=== PATIENT | female | born 1985 | race Caucasian/White ===

== ENCOUNTER 2020-07-30 10:39 | Inpatient (IN) | payer MEDICAID, OTHER ==
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
[2020-07-30 14:15] LABS: Amphetamine Screen,Urine Not Detected (NotDetected); Barbiturate Screen,Urine Not Detected (NotDetected); Benzodiazepines Screen,Urine Not Detected (NotDetected); Cocaine Screen,Urine Not Detected (NotDetected); Methadone Screen, Urine Not Detected (NotDetected); Opiate Screen,Urine Not Detected (NotDetected); Oxycodone Screen, Urine Not Detected (NotDetected); Phencyclidine Screen,Urine Not Detected (NotDetected); Tricyclic Antidepressant,Urine Detected (NotDetected); Urn Cannabinoid Scrn Not Detected (NotDetected)
[2020-07-30] MEDS ORDERED: MAGNESIUM HYDROXIDE 2,400 MG/10 ML CUP PO PRN (16:26)
[2020-07-30] MEDS ORDERED: HALOPERIDOL LACTATE 5 MG/ML 1 ML VIAL IM PRN (16:28)
[2020-07-30] MEDS ORDERED: LORazepam 2 MG/ML INJ IM PRN (16:28)
[2020-07-30] MEDS: LORazepam 1 MG TAB PO PRN (17:21)
[2020-07-30] MEDS: MIRTAZAPINE 15 MG TAB PO SCH (22:59)
[2020-07-30] MEDS: QUEtiapine 50 MG TAB PO SCH (23:00)
[2020-07-30] MEDS: busPIRone HCl 5 MG TAB PO SCH (23:00)
--- NOTE | 2020-07-31 01:04 | P.PN ---
Progress Note - Text Progress Note Date: 07/31/20 patient was not appropriate for evaluation tonight , will re attempt tomorrow
[2020-07-31] MEDS: LORazepam 1 MG TAB PO PRN (03:50)
[2020-07-31] MEDS: busPIRone HCl 5 MG TAB PO SCH (08:17)
[2020-07-31 08:51] LABS: Basophils # (A) 0.1 k/uL (0-0.2); Basophils % (A) 1 %; Eosinophils # (A) 0.2 k/uL (0-0.7); Eosinophils % (A) 2 %; HGB 14.2 gm/dL (11.4-16.0); Lymphocytes # (A) 2.5 k/uL (1.0-4.8); Lymphocytes % (A) 30 %; MCH 29.9 pg (25.0-35.0); MCHC 32.3 g/dL (31.0-37.0); MCV 92.3 fL (80.0-100.0); Monocytes # (A) 0.5 k/uL (0-1.0); Monocytes % (A) 6 %; Neutrophils # (A) 4.9 k/uL (1.3-7.7); Neutrophils % (A) 59 %; Platelet Count 281 k/uL (150-450); RBC 4.76 m/uL (3.80-5.40); RDW 13.5 % (11.5-15.5); WBC 8.2 k/uL (3.8-10.6)
[2020-07-31] MEDS ORDERED: FLUoxetine HCL 10 MG CAP PO SCH (09:00)
[2020-07-31 09:09] LABS: ALT 11 U/L (4-34); AST 21 U/L (14-36); African American GFR (CKD) >90 (>60 ml/min/1.73 sqM); Albumin 3.7 g/dL (3.5-5.0); Alkaline Phosphatase 61 U/L (38-126); Anion Gap 4 mmol/L; Blood Urea Nitrogen 16 mg/dL (7-17); Calcium 9.1 mg/dL (8.4-10.2); Carbon Dioxide 31 mmol/L (22-30); Chloride 107 mmol/L (98-107); Glucose 81 mg/dL (74-99); Non-African American GFR(CKD) 78 (>60 ml/min/1.73 sqM); Potassium 4.3 mmol/L (3.5-5.1); Sodium 142 mmol/L (137-145); Total Bilirubin 0.3 mg/dL (0.2-1.3); Total Protein 6.2 g/dL (6.3-8.2)
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
--- NOTE | 2020-07-31 20:58 | P.PN ---
Progress Note - Text Progress Note Date: 07/31/20 again , patient could not participate in the interview she is staring into hallway mirrors. does not make eye contact, does not talk or acknowledge my existence. please notify sound physicians for any medical concerns
[2020-07-31] MEDS: MIRTAZAPINE 15 MG TAB PO SCH (21:06)
[2020-07-31] MEDS: QUEtiapine 50 MG TAB PO SCH (21:06)
[2020-08-01] MEDS: FLUoxetine HCL 10 MG CAP PO SCH (08:07)
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
[2020-08-01] MEDS: LORazepam 1 MG TAB PO PRN (11:31)
[2020-08-01] MEDS: MIRTAZAPINE 15 MG TAB PO SCH (20:59)
[2020-08-01] MEDS: QUEtiapine 50 MG TAB PO SCH (20:59)
[2020-08-02] MEDS: LORazepam 1 MG TAB PO PRN ×2 (06:37→15:32)
[2020-08-02] MEDS: FLUoxetine HCL 10 MG CAP PO SCH (08:48)
--- NOTE | 2020-08-02 10:25 | P.PN ---
Progress Note - Text Progress Note Date: 08/02/20 Interval History: Patient was seen wandering the hallways and was directable and agreeable to speak with policy writer in the office. Patient reports that she is feeling "good." Patient reports that she is feeling significantly better. She states that she wants to go home because she wants to move forward with her life. When asked about why she was unable to display an ability to take care of herself while in the [facility], the patient reports that it was a very depressing and difficult situation. She reports that she has no issues attending to her ADLs today. She does express concern about showering at this hospital but states that she will do so if it will further her case for discharge. The patient is currently denying any suicidal or homicidal ideation, intention, and/or plan. She is not reporting any auditory or visual hallucinations. She is denying any paranoia or other delusions. She has been adherent with her medications and is not reporting any significant side effects at this time. The patient reports that she is eating and sleeping well. Mental Status Exam: General Appearance: Patient appears to be stated age is alert, directable, and cooperative. Dressed in a hospital gown. Behavior: Patient is calmly seated without any agitated behavior. Psychomotor activity appears normal today. Eye contact is appropriate. Speech: Patient's speech is spontaneous with normal rate, and volume. Mildly dysarthric and monotone. Mood/Affect: Mood is "I need to go home." Affect is constricted but otherwise euthymic. Suicidality/Homicidality: Patient denies having any suicidal or homicidal ideation intent or plan. Perceptions: Patient denies any visual hallucinations and denies any auditory hallucinations Though content/process: No delusional thought content is endorsed. Thought process is linear, logical, and future-oriented. Memory and concentration: AOX3, grossly intact for the purposes of this session Judgment and insight: improving Vital Signs Temp 98.3 F 08/01/20 15:31 Pulse 115 H 08/02/20 06:38 Resp 18 08/02/20 06:38 BP 120/69 08/02/20 06:38 Pulse Ox 99 07/30/20 16:26 Assessment Depressive Disorder, unspecified Rule out Psychosis, unspecified vs Schizophreniform disorder Patient initially presented as bizarre, guarded, and superficial in her responses. She is currently much more spontaneous and displays more future- orientation. She is alert and oriented in all spheres. Plan: -Patient continues to meet criteria for inpatient psychiatric admission for symptom stabilization and safety. Patient is petitioned and certified. Patient reports she is likely to defer mental health court. -Medications: Continue Prozac 30 mg daily for depression/anxiety Continue Remeron 15 mg at bedtime for depression/appetite stimulation Continue Seroquel 75 mg at bedtime for mood augmentation. -When necessary Ativan and Haldol for agitation/aggression. -NRT - nicotine patch -SW on board for discharge planning. Encouraged the patient to participate in milieu.
[2020-08-02] MEDS: QUEtiapine 50 MG TAB PO SCH (21:07)
[2020-08-02] MEDS: MIRTAZAPINE 15 MG TAB PO SCH (21:08)
[2020-08-03] MEDS: FLUoxetine HCL 10 MG CAP PO SCH (08:32)
[2020-08-03] MEDS: LORazepam 1 MG TAB PO PRN (09:42)
--- NOTE | 2020-08-03 13:00 | P.PN ---
Progress Note - Text Progress Note Date: 08/03/20 Interval History: Patient was seen in her room and was directable and agreeable to speak with documentation writer . This 35-year-old female patient was admitted because of psychosis. She is still hallucinating and hears voices telling her different stuff. She speaks in a low monotonous voice which is a hardly audible and barely productive. She is quiet and withdrawn and preoccupied.. At this time patient denies any suicidal or homical ideations, intent or plan. Patient denies any side effects from the medications and has been compliant with meds. Mental Status Exam: General Appearance: Patient appears to be stated age is alert, directable, and cooperative. Behavior: Patient is calmly seated without any agitated behavior. Speech: Patient's speech is non-fluent and nonpressured. Mood/Affect: Mood is improving mildly, affect is constricted. Suicidality/Homicidality: Patient denies having any suicidal or homicidal ideation intent or plan. Perceptions: Patient has auditory hallucinations. Though content/process: She has a posterior ideas and extreme poverty of thought content. Memory and concentration: Her memory is poor and she is unable to concentrate on task. Judgment and insight: She has a poor insight and her judgment is impaired. Assessment This patient came because a diagnosis of psychosis and continues to have auditory hallucinations and shows other symptoms of psychosis. Plan: -Patient continues to meet criteria for inpatient psychiatric admission for symptom stabilization and safety. -Medications: Continue medications as before -When necessary Ativan and Haldol for agitation/aggression. -SW on board for discharge planning. Encouraged the patient to participate in milieu.
[2020-08-03] MEDS: MIRTAZAPINE 15 MG TAB PO SCH (21:03)
[2020-08-03] MEDS: QUEtiapine 50 MG TAB PO SCH (21:03)
[2020-08-04] MEDS: LORazepam 1 MG TAB PO PRN (05:12)
[2020-08-04] MEDS: FLUoxetine HCL 10 MG CAP PO SCH (09:06)
--- NOTE | 2020-08-04 13:18 | P.PN ---
Progress Note - Text Progress Note Date: 08/04/20 Interval History: Patient was seen in her room and was directable and agreeable to speak with medical underwriter. This patient continues to maintain status quo. She continues to show symptoms of psychosis. She mostly stays in her room withdrawn and preoccupied and talking to herself. At this time patient denies any suicidal or homical ideations, intent or plan. Patient denies any side effects from the medications and has been compliant with meds. Mental Status Exam: General Appearance: Patient appears to be stated age . Behavior: Patient is calm without any agitated behavior. Speech: Patient's speech is non-fluent and nonpressured. Mood/Affect: Mood is blank and affect is flat Suicidality/Homicidality: Patient denies having any suicidal or homicidal ideation intent or plan. Perceptions: Patient has auditory hallucinations Though content/process: She has a paucity of ideas and poverty of thought content. Memory and concentration: Her concentration is a poor and her memory is not testable Judgment and insight: She has a poor insight and judgment is impaired Assessment This patient was admitted with this psychosis and continues to have ongoing symptoms of it. Plan: -Patient continues to meet criteria for inpatient psychiatric admission for symptom stabilization and safety. -Medications: Continue medication as before -When necessary Ativan and Haldol for agitation/aggression. -SW on board for discharge planning. Encouraged the patient to participate in milieu.
[2020-08-04] MEDS: QUEtiapine 50 MG TAB PO SCH (21:09)
[2020-08-04] MEDS: MIRTAZAPINE 15 MG TAB PO SCH (21:09)
[2020-08-05] MEDS: FLUoxetine HCL 10 MG CAP PO SCH (08:42)
--- NOTE | 2020-08-05 11:54 | P.PN ---
Progress Note - Text Progress Note Date: 08/05/20 Interval History: Patient was seen wandering the hallways and was directable and agreeable to speak with bond writer in the office. The patient is currently demanding discharge. Upon evaluation of the patient in the milieu, she has been noted to be responding to internal stimuli, often engaging in self speech and addressing people who are not present around her. When confronted with this information, the patient reported that she has been having "godly conversations and voices." She refuses to further elaborate on the content of what was spoken to her. The patient continues just to repeat constantly to this provider "I'm ready to go home and I need to go home." She is overtly denying any auditory or visual hallucinations otherwise. She is denying any paranoia. She reports no suicidal or homicidal ideation, intention, and/or plan. She has been adherent to medi cations is not reporting any significant side effects. She was informed that we will continue to address her psychotic symptoms and increased medications to target her psychotic symptoms. Patient appears to be upset and took some redirection in order for her to leave the office. Mental Status Exam: General Appearance: Patient appears to be stated age is alert, difficult to direct, and intermittently cooperative. Dressed in a hospital gown. Fair hygiene and grooming. Behavior: Patient is calmly seated without any agitated behavior. Psychomotor activity appears slow. Eye contact is appropriate. Appears to respond to internal stimuli. Speech: Patient's speech is spontaneous with normal rate, and volume. Mildly dysarthric and monotone. Mood/Affect: Mood is "I need to go home." Affect is blunted. Suicidality/Homicidality: Patient denies having any suicidal or homicidal ideation intent or plan. Perceptions: Patient endorses auditory hallucinations. Though content/process: Shinto delusions. Very religiously preoccupied. Responds to internal stimuli. Memory and concentration: AOX3, grossly intact for the purposes of this session Judgment and insight: Poor Vital Signs Temp 97.4 F L 08/05/20 06:47 Pulse 85 08/05/20 06:47 Resp 16 08/05/20 06:47 BP 100/51 08/05/20 06:47 Pulse Ox 99 07/30/20 16:26 Intake & Output 06/06/21 06/07/21 06/07/21 18:59 06:59 18:59 Weight 64.3 kg Assessment Psychosis, unspecified - suspect schizophreniform versus schizophrenia versus schizoaffective disorder, depressed type. Plan: -Patient continues to meet criteria for inpatient psychiatric admission for symptom stabilization and safety. Patient is petitioned and certified. -Medications: Continue Prozac 30 mg daily for depression/anxiety Continue Remeron 15 mg at bedtime for depression/appetite stimulation Increase Seroquel to 150 mg at bedtime for mood augmentation. We will titrate this medication in response to the patient's target symptoms. -When necessary Ativan and Haldol for agitation/aggression. -NRT - nicotine patch -SW on board for discharge planning. Encouraged the patient to participate in milieu.
[2020-08-05] MEDS: LORazepam 1 MG TAB PO PRN (17:10)
[2020-08-05] MEDS ORDERED: QUEtiapine 50 MG TAB PO SCH (21:00)
[2020-08-05] MEDS: MIRTAZAPINE 15 MG TAB PO SCH (21:39)
[2020-08-06] MEDS: FLUoxetine HCL 10 MG CAP PO SCH (09:15)
--- NOTE | 2020-08-06 10:51 | P.PN ---
Progress Note - Text Progress Note Date: 08/06/20 Interval History: Patient was seen wandering the hallways and was directable and agreeable to speak with senior writer in the office. The patient continues to be quite guarded and a poor historian. The patient refuses to acknowledge that she has experienced a psychotic break despite being informed of the psychotic symptoms she was displaying including responding to internal stimuli, synagogue preoccupation, and decreased ability to function. The patient states that she is her own guardian and that she wants to be discharged. The patient states that she would like to go home. When asked if there is family the treatment team can speak to, the patient becomes agitated and states, "You don't need to speak to anyone. You're p*ssing me off." The patient is not reporting any suicidal or homicidal ideation, intention, and/or plan. She is denying any overt auditory or visual hallucinations. She does express some synagogue preoccupation,Including receiving godly messages, and when further explored, patient responds, "It's not a crime to be synagogue." She has been adherent with her medications and is not reporting any significant side effects at this time. The patient has not been able to address her hygiene during this hospital stay and refuses to shower last night. Mental Status Exam: General Appearance: Patient appears to be stated age is alert, difficult to direct, and intermittently cooperative. Dressed in a hospital gown with an oversized hooded sweatshirt. Poor hygiene and grooming. Behavior: Patient is calmly seated but later becomes agitated. Psychomotor activity appears slow. Speech: Patient's speech is spontaneous with normal rate, and volume. Mildly dysarthric and monotone. Mood/Affect: Mood is "I need to go home." Affect is blunted to angry. Suicidality/Homicidality: Patient denies having any suicidal or homicidal ideation intent or plan. Perceptions: Patient endorses auditory hallucinations. Though content/process: Protestant delusions. Very religiously preoccupied. Responds to internal stimuli. Memory and concentration: AOX3, grossly intact for the purposes of this session Judgment and insight: Poor Vital Signs Temp 97.4 F L 08/05/20 06:47 Pulse 85 08/05/20 06:47 Resp 16 08/05/20 06:47 BP 100/51 08/05/20 06:47 Pulse Ox 99 07/30/20 16:26 Assessment Psychosis, unspecified - suspect schizophreniform versus schizophrenia versus schizoaffective disorder, depressed type. Plan: -Patient continues to meet criteria for inpatient psychiatric admission for symptom stabilization and safety. Patient deferred mental health court. -As the patient is her own guardian, discharge disposition has changed from an [facility] home likely to her own home. We will change our medication to an antipsychotic with a SARGENT to ensure medication adherence. -Medications: Continue Prozac 30 mg daily for depression/anxiety Continue Remeron 15 mg at bedtime for depression/appetite stimulation Discontinue Seroquel. Start Invega 6 mg at bedtime for psychosis. Plan is to transition the patient to SARGENT invega sustenna 234 mg IM to ensure medication adherence. -When necessary Ativan and Haldol for agitation/aggression. -NRT - nicotine patch -SW on board for discharge planning. Encouraged the patient to participate in milieu.
[2020-08-06] MEDS: PALIPERIDONE 6 MG TAB.ER.24 PO SCH (20:54)
[2020-08-06] MEDS: MIRTAZAPINE 15 MG TAB PO SCH (20:54)
[2020-08-06] MEDS ORDERED: QUEtiapine 100 MG TAB PO SCH (21:00)
[2020-08-06] MEDS: LORazepam 1 MG TAB PO PRN (22:46)
[2020-08-07] MEDS: FLUoxetine HCL 10 MG CAP PO SCH (08:30)
--- NOTE | 2020-08-07 11:14 | P.PN ---
Progress Note - Text Progress Note Date: 08/07/20 Interval History: Patient was seen wandering the hallways and was directable and agreeable to speak with jingle writer in the office. The patient appears disorganized today and requires much redirection. She does not respond appropriately to questioning and often speaks in short nonsensical responses. She does report she is feeling very tired today. She continues to be focused on discharge. She continues to report, "I just need to go home to get my life together." Mental Status Exam: General Appearance: Patient appears to be stated age is alert, difficult to direct, and intermittently cooperative. Dressed in a hospital gown with an oversized hooded sweatshirt. Poor hygiene and grooming. Behavior: Patient appears somnolent. Psychomotor activity appears slow. Speech: Patient's speech is spontaneous, low in volume, monotone, dysarthric. Mood/Affect: Mood is "I just need to go home." Affect is somnolent and blunted. Suicidality/Homicidality: Unable to assess Perceptions: Unable to assess Though content/process: Unable to assess Memory and concentration: Unable to assess Judgment and insight: Poor Vital Signs Temp 97.7 F 08/07/20 06:40 Pulse 69 08/07/20 06:40 Resp 14 08/07/20 06:40 BP 94/54 08/07/20 06:40 Pulse Ox 99 07/30/20 16:26 Assessment Psychosis, unspecified - suspect schizophreniform versus schizophrenia versus schizoaffective disorder, depressed type. Plan: -Patient continues to meet criteria for inpatient psychiatric admission for symptom stabilization and safety. Patient deferred mental health court. -As per discussion with the patient's therapist, [facility] dispo is [facility] or a forensic center. [facility]. -Medications: Continue Prozac 30 mg daily for depression/anxiety Continue Remeron 15 mg at bedtime for depression/appetite stimulation Continue Invega 6 mg at bedtime for psychosis. Plan is to transition the patient to SARGENT invega sustenna 234 mg IM to ensure medication adherence. -When necessary Ativan and Haldol for agitation/aggression. -NRT - nicotine patch -SW on board for discharge planning. Encouraged the patient to participate in milieu.
[2020-08-07] MEDS: MAG HYDROX/AL HYDROX/SIMETH 30 ML CUP PO PRN (11:45)
[2020-08-07] MEDS: LORazepam 1 MG TAB PO PRN (14:38)
[2020-08-07] MEDS: PALIPERIDONE 6 MG TAB.ER.24 PO SCH (21:42)
[2020-08-07] MEDS: MIRTAZAPINE 15 MG TAB PO SCH (21:42)
[2020-08-08] MEDS: FLUoxetine HCL 10 MG CAP PO SCH (09:35)
[2020-08-08] MEDS ORDERED: HALOPERIDOL LACTATE 5 MG/ML 1 ML VIAL IM PRN (11:25)
--- NOTE | 2020-08-08 11:29 | P.PN ---
Progress Note - Text Progress Note Date: 08/08/20 Interval History: Patient was seen wandering the hallways and was agreeable to speak with lyric writer in the office. The patient reports that she feels "very tired today." The patient reports that she does not have any issues with sleep last night. She reports that she feels oversedated with the medications. She did receive Ativan this morning. The patient is not reporting any suicidal or homicidal ideation, intention, and/or plan. She does endorse auditory hallucinations but refuses to elaborate. She is not reporting any visual hallucinations. She is denying any overt symptoms of paranoia or other delusions. The patient does report that she met with an tax associate attorney yesterday but is uncertain about what paperwork was presented before her. She continues to request for discharge. Mental Status Exam: General Appearance: Patient appears to be stated age is alert, difficult to direct, and intermittently cooperative. Dressed in jeans with an oversized hooded sweatshirt. Poor hygiene and grooming. Behavior: Patient appears somnolent. Psychomotor activity appears slow. Speech: Patient's speech is nonspontaneous, low in volume, monotone, dysarthric. Mood/Affect: Mood is "very tired." Affect is somnolent and drowsy. Suicidality/Homicidality: Patient denies any suicidal or homicidal ideation, intention, and/or plan. Perceptions: Patient does endorse auditory hallucinations. She denies any visual hallucinations. Though content/process: No delusional thought content is endorsed. Thought process with thought blocking. Memory and concentration: Grossly intact for purposes of this session. Judgment and insight: Poor Vital Signs Temp 97.9 F 08/08/20 07:17 Pulse 101 H 08/08/20 07:17 Resp 18 08/08/20 07:17 BP 99/55 08/08/20 07:17 Pulse Ox 99 07/30/20 16:26 Assessment Psychosis, unspecified - suspect schizophreniform versus schizophrenia versus schizoaffective disorder, depressed type. Plan: -Patient continues to meet criteria for inpatient psychiatric admission for symptom stabilization and safety. Patient deferred mental health court. -As per discussion with the patient's therapist, patient dispo is senior living or a forensic center. Possible [facility]. -Medications: Continue Prozac 30 mg daily for depression/anxiety Discontinue remeron due to oversedation. Increase Invega to 9 mg at bedtime for psychosis. Plan is to transition the patient to SARGENT invega sustenna 234 mg IM to ensure medication adherence. -We will decrease the dose of Haldol to 3 mg as needed and we will discontinue Ativan due to oversedation. We will start Vistaril 25 mg every 8 hours when necessary for anxiety. -NRT - nicotine patch -SW on board for discharge planning. Encouraged the patient to participate in milieu.
[2020-08-08] MEDS: hydrOXYzine pamoate 25 MG CAP PO PRN ×2 (11:49→19:40)
[2020-08-08] MEDS: PALIPERIDONE 3 MG TAB.ER.24 PO SCH (19:40)
[2020-08-09] MEDS: FLUoxetine HCL 10 MG CAP PO SCH (09:01)
[2020-08-09] MEDS: hydrOXYzine pamoate 25 MG CAP PO PRN (09:48)
[2020-08-09 14:34] LABS: Appearance,Urine Clear (Clear); Bilirubin,Urine Negative (Negative); Blood,Urine Negative (Negative); Color,Urine Colorless; Glucose,Urine (UA) Negative (Negative); Ketones,Urine Negative (Negative); Leukocyte Esterase,Urine Negative (Negative); Nitrite,Urine Negative (Negative); PH, Urine 6.5 (5.0-8.0); Protein,Urine Negative (Negative); Specific Gravity,Urine 1.003 (1.001-1.035); Urobilinogen,Urine <2.0 mg/dL (<2.0)
--- NOTE | 2020-08-09 19:07 | PN ---
PROGRESS NOTE DATE OF SERVICE: 08/09/2020 CHIEF COMPLAINT: The patient had significant decrease in her ability to function and showed poor ability to perform ADLs. This occurred while she was incarcerated. INTERVAL HISTORY: The patient has been doing fair. She had a quiet day yesterday. She comes out on the unit. She will wander about where she walks in a very slow measured gait. She has some difficulties with coordination and balance. At times she can be seen talking to herself. Whether or not she is responding to internal stimuli is not fully clear. She did not attend groups yesterday. She said she slept fairly well. Today she has been up. Overall, she has been doing about the same. She continues to wander. She did attend one group today. When I talked to her she seemed to indicate that overall things were going better for her. She seemed to have a better outlook and mood. She made various random comments though it was difficult to follow her train of thought. She did present in a friendly manner. She made some comment to the negative about her Prozac, though when I tried to get details she did not really elaborate. For the most part she appears to tolerate her psychotropic medications. MENTAL STATUS: Patient walked very slowly. She gave fair eye contact at best. She was a little restless. She answered questions with brief responses. Some of the time she had garbled speech and it was difficult to hear what she was saying. Her affect was somewhat constricted. She had a somewhat fixed smile on her face and presented with a calm manner. She did not appear to be significantly depressed or distressed. The patient denied having auditory hallucinations. She does have some self talk. She has not made any indication of self-harm. She was oriented to her circumstances and was able to talk about some of discharge planning issues. ASSESSMENT: I will continue the current diagnosis and treatment plan. We will continue psychotropic medications the same including Prozac 30 mg a day and Invega 9 mg a day. I have briefly reviewed medication issues with the patient. I discussed side effects that she may experience. The patient indicated to the negative to all of those. I reviewed her home circumstances. We will focus on stabilization and discharge planning. MMODL / IJN: [id number] /
[2020-08-09] MEDS: PALIPERIDONE 3 MG TAB.ER.24 PO SCH (20:26)
[2020-08-10] MEDS: FLUoxetine HCL 10 MG CAP PO SCH ×2 (09:11→09:13)
[2020-08-10] MEDS: PALIPERIDONE 3 MG TAB.ER.24 PO SCH (20:08)
--- NOTE | 2020-08-10 21:53 | P.PN ---
Progress Note - Text Progress Note Date: 08/10/20 Subjective: Patient was seen today as a cross coverage for Dr. Mckeon. The patient was evaluated, chart reviewed, case discussed with the treatment team. Patient reports fair sleep last night, and appetite was reported as "better". Patient has been going to groups and other unit activities. The patient is not compliant with her medications and denies any adverse reactions. Pt was slow in her thinking with delayed response. She reports that will not take Prozac as she doesn't feel any depression and never was "severely depressed". She was educated about taking her psych medications as prescribed and to discuss them with Dr. Mckeon. She will continue take Invegas as per her report. Denies any manic or psychotic symptoms. Denies A/V H and denies any S/H ideation. Reports shakiness but attributed that to baseline shaking and refused to discuss any recommended treatment for EPS. Objective: Vitals has been reviewed. Mental status examination; Appearance: The patient appears stated age, adequately groomed and dressed, no specific features. Gait/posture: Normal gait, Normal arm swinging: No abnormal movements. Attitude and behavior: engaged, cooperative, eye contact. Motor activity: Normal psychomotor activity Speech: slow rate, low tone, and volume. Mood: Anxious Affect: Constricted Thought form: slow thinking, poverty of thoughts. Thought content: Non-delusional, denies suicidal thoughts, denies homicidal thoughts, denies intentions or plans. Perception: Denies any auditory or visual hallucinations Attention: No impairment. Orientation: Patient patient was fully oriented to time place person and situation. Insight: Patient has limited insight about her psychiatric disorder. Judgment: Patient has limited judgment about her psychiatric treatment. Assessment: Psychosis, unspecified - schizophreniform versus schizophrenia versus schizoaffective disorder, depressed type. Plan: Continue inpatient level of care due to need for further stabilization. Precautions: Continue 15 minutes check for safety. Consider medical consultation if any acute medical issues arise. Provide the patient individual, group therapy, substance use disorder counseling to give better insight and learn coping skills. Medications: Prozac for depression and anxiety symptoms. Invega for mood stabilization and psychotic symptoms. Continue as needed medications for psychiatric emergencies including psychosis, agitation and anxiety. Continue non-psychiatric medications for medical conditions as recommended by the medical team. Discharge patient to OUTPATIENT services upon a stabilization
[2020-08-11] MEDS: BENZTROPINE MESYLATE 1 MG TAB PO PRN (00:44)
[2020-08-11] MEDS: FLUoxetine HCL 10 MG CAP PO SCH (09:03)
[2020-08-11] MEDS: PALIPERIDONE 3 MG TAB.ER.24 PO SCH ×2 (21:33→21:34)
--- NOTE | 2020-08-12 00:41 | P.PN ---
Progress Note - Text Progress Note Date: 08/11/20 Subjective: Patient was seen today as a cross coverage for Dr. Mckeon. The patient was evaluated, chart reviewed, case discussed with the treatment team. Patient is still refusing to take Prozac and reports she doesn't feel depressed. She reports her hand tremors are better today, and she received when necessary Cogentin yesterday. Denies depression, feeling hopeless, or suicidal ideation. Denies any hallucinations, paranoid ideation, or delusions. Denies any mood swings or manic symptoms. Continued to report fair sleep and appetite, and attends selected groups. She continues to take Invega but refused to take Prozac. Cogentin was added as when necessary for EPS yesterday. Patient refused to discuss any scheduled medication for EPS symptoms. Objective: Vitals has been reviewed. Mental status examination; Appearance: The patient appears stated age, adequately groomed and dressed, no specific features. Gait/posture: Normal gait, Normal arm swinging, hand tremors. Attitude and behavior: engaged, cooperative, eye contact. Motor activity: Normal psychomotor activity Speech: slow rate, low tone, and volume. Mood: Anxious Affect: Constricted Thought form: slow thinking, poverty of thoughts. Thought content: Non-delusional, denies suicidal thoughts, denies homicidal thoughts, denies intentions or plans. Perception: Denies any auditory or visual hallucinations Attention: No impairment. Orientation: Patient patient was fully oriented to time place person and situation. Insight: Patient has limited insight about her psychiatric disorder. Judgment: Patient has limited judgment about her psychiatric treatment. Assessment: Psychosis, unspecified - schizophreniform versus schizophrenia versus schizoaffective disorder, depressed type. Plan: Continue inpatient level of care due to need for further stabilization. Precautions: Continue 15 minutes check for safety. Consider medical consultation if any acute medical issues arise. Provide the patient individual, group therapy, substance use disorder counseling to give better insight and learn coping skills. Medications: Prozac for depression and anxiety symptoms. Invega for mood stabilization and psychotic symptoms. Continue as needed medications for psychiatric emergencies including psychosis, agitation and anxiety. Continue when necessary Cogentin for EPS Continue non-psychiatric medications for medical conditions as recommended by the medical team. Discharge patient to OUTPATIENT services upon a stabilization
[2020-08-12] MEDS: hydrOXYzine pamoate 25 MG CAP PO PRN (01:27)
[2020-08-12] MEDS: BENZTROPINE MESYLATE 1 MG TAB PO PRN (01:39)
[2020-08-12] MEDS: PALIPERIDONE 3 MG TAB.ER.24 PO SCH ×2 (01:52→21:26)
[2020-08-12] MEDS: FLUoxetine HCL 10 MG CAP PO SCH (09:16)
[2020-08-12] MEDS: MAG HYDROX/AL HYDROX/SIMETH 30 ML CUP PO PRN (09:19)
--- NOTE | 2020-08-12 11:10 | P.HPMEDMHU ---
History of Present Illness H&P Date: 08/12/20 Chief Complaint: brought in from the [facility] due to poor functioning Patient is a 35-year-old female with past medical history of marijuana abuse who was brought in to the ED on 07/31/2020 from [facility] due to declining in her functional status. In her chart it is reported that patient had poor ability to perform her ADLs. Multiple attempts were made by our service to obtain history from the patient however patient was not answering any questions so she could not be evaluated medically. I saw the patient this morning she is responding to questions appropriately. She states that her stay in the psych facility has been beneficial. She is very appreciative of the care that she has received. Patient states that she is for marijuana and so she will continue to smoke it. She states that it has helped her in the past. She states she'll need to take 4 puffs which gives her significant relief. Patient denies any chest pain, nausea, vomiting, fever or chills. Review of Systems 10 ROS reviewed and are negative except as noted in HPI Past Medical History Past Medical History: Seizure Disorder Additional Past Medical History / Comment(s): Seizure DO as a child. last seizure 2004 History of Any Multi-Drug Resistant Organisms: None Reported Past Surgical History: No Surgical Hx Reported Past Anesthesia/Blood Transfusion Reactions: No Reported Reaction Past Psychological History: Depression Additional Psychological History / Comment(s): pt unsure of psych Hx. Smoking Status: Never smoker Past Alcohol Use History: Rare Past Drug Use History: Marijuana Medications and Allergies Home Medications Medication Instructions Recorded Confirmed Type FLUoxetine HCL [PROzac] 10 mg PO DAILY 07/30/20 07/30/20 History Mirtazapine [Remeron] 15 mg PO HS 07/30/20 07/30/20 History QUEtiapine [SEROquel] 50 mg PO HS 07/30/20 07/30/20 History busPIRone HCl [Buspar] 5 mg PO BID 07/30/20 07/30/20 History metroNIDAZOLE [Flagyl] 500 mg PO BID 07/30/20 07/30/20 History Allergies Allergy/AdvReac Type Severity Reaction Status Date / Time No Known Allergies Allergy Verified 07/30/20 18:27 Physical Exam Vitals: Vital Signs Temp Pulse Resp BP 08/12/20 02:00 97.6 F 75 18 118/58 General: [Alert and oriented, well nourished, no acute distress]. Eye: [PERRL, EOMI, normal conjunctiva]. HENT: [Normocephalic, clear tympanic membranes, normal hearing, moist oral mucosa, no scleral icterus, no sinus tenderness]. Neck: [Supple, non-tender, no carotid bruits, no JVD, no lymphadenopathy]. Lungs: [Clear to auscultation and percussion, non-labored respiration]. Heart: [Normal rate, regular rhythm, no murmur, gallop or edema]. Abdomen: [Soft, non-tender, non-distended, normal bowel sounds, no masses]. Musculoskeletal: [Normal range of motion and strength, no tenderness or swelling]. Skin: [Skin is warm, dry and pink, no rashes or lesions]. Neurologic: [Awake, alert, and oriented X3, CN II-XII intact]. Psychiatric: [Cooperative, appropriate mood and affect]. Cranial Nerve Examination - Cranial Nerves Cranial Nerve II- Optic: Intact Cranial Nerve III- Oculomotor: Intact Cranial Nerve IV- Trochlear: Intact Cranial Nerve V- Trigeminal: Intact Cranial Nerve - Abducens: Intact Cranial Nerve VII- Facial: Intact Cranial Nerve VIII- Auditory: Intact Cranial Nerve IX- Glossopharyngeal: Intact Cranial Nerve X- Vagus: Intact Cranial Nerve XI- Accessory: Intact Cranial Nerve XII- Hypoglossal: Intact Results CBC & Chem 7: 07/31/20 07:58 07/31/20 07:58 Thrombosis Risk Factor Assmnt - Choose All That Apply Any of the Below Risk Factors Present?: No Assessment and Plan Assessment: Marijuana abuse -Patient was counseled on marijuana abuse however she is not willing to quit Psychosis -Appears to be improving since admission -Yellow psychiatric management Thank you for allowing us to participate in the care of this patient. We will follow peripherally. Do not hesitate to contact us with questions. Someone can reach from [facility] hospitalist group at all hours of the day at [phone].
[2020-08-12] MEDS ORDERED: PALIPERIDONE IM 234 MG/1.5 ML SYG IM STA (11:14)
--- NOTE | 2020-08-12 12:25 | P.PN ---
Progress Note - Text Progress Note Date: 08/12/20 Interval History: Patient was seen wandering the hallways and was agreeable to speak with sql report writer in the office. Patient is presenting well today. She is currently not reporting any auditory or visualizations. Denying any paranoia or other delusions. She is much more spontaneous today and has had increased range of affect. She displays improved hygiene and grooming. The patient does express however that she wishes to be discharged and does not believe that she needs to go back to [facility]. She was informed that it is not her decision with this hospital's decision if she has to go back to [facility] or not. She was informed that she is likely a [facility]-hold. She seems to dismiss this when being informed of this. She does express a strong desire to stop Prozac stating that the Prozac has been causing him to feel nauseous and lightheaded. She is agreeable to taking the Invega. Patient is not reporting issues with sleep or appetite. She has been attending groups with high participation and has displayed future orientation. The patient is scheduled to go to court for competency today. Mental Status Exam: General Appearance: Patient appears to be stated age is alert, Directable and cooperative. Dressed In a hospital gown with an oversized [place] hooded sweatshirt. Improved hygiene and grooming. Behavior: Patient is seated in the office with no agitated behavior. Eye contact is appropriate. Psychomotor activity appears normal. Speech: Patient's speech is Spontaneous, with normal rate and volume. Monotone. Mood/Affect: Mood is "I'm feeling really good today." Affect is bright. Suicidality/Homicidality: Patient denies any suicidal or homicidal ideation, intention, and/or plan. Perceptions: Patient does endorse auditory hallucinations. She denies any visual hallucinations. Though content/process: No delusional thought content is endorsed. Thought process appears to be linear and logical although the patient does not seem to comprehend that she may be going back to [facility] after this admission. Possible denial. Memory and concentration: Grossly intact for purposes of this session. Judgment and insight: Improving but still poor. Vital Signs Temp 97.6 F 08/12/20 02:00 Pulse 75 08/12/20 02:00 Resp 18 08/12/20 02:00 BP 118/58 08/12/20 02:00 Pulse Ox 99 07/30/20 16:26 Intake & Output 08/11/20 08/12/20 08/12/20 18:59 06:59 18:59 Weight 65.5 kg Assessment Psychosis, unspecified - suspect schizophreniform versus schizophrenia versus schizoaffective disorder, depressed type. Plan: -Patient continues to meet criteria for inpatient psychiatric admission for symptom stabilization and safety. Patient deferred mental health court. -As per discussion with the patient's therapist, patient dispo is [facility] or a forensic center. [facility]. -Medications: Discontinue Prozac Decrease Invega to 6 g by mouth daily as we will administer Invega Sustenna 234 mg IM today. -Haldol and vistaril for agitation when necessary. -NRT - nicotine patch -SW on board for discharge planning. Encouraged the patient to participate in milieu.
--- NOTE | 2020-08-13 09:52 | P.PN ---
Progress Note - Text Progress Note Date: 08/13/20 nterval History: Patient was seen wandering the hallways and was agreeable to speak with telegraphic typewriter operator chief in the office. Patient is reporting she is feeling well today. She does acknowledge she attended trial yesterday to assess her competency. She is unable to provide any details of the event. She does report she has been able to shower last night and has no issues with appetite. She reports no issues with sleep. She denies any suicidal or homicidal ideation, intention, and/or plan. She reports no auditory or visual hallucinations. She denies any paranoia or other delusions. She continues to not seem to grasp the understanding of her legal problems and her possible prison hold. She maintains the thought that she will be discharged home despite multiple attempts by this provider to inform her of the different discharge scenarios. Mental Status Exam: General Appearance: Patient appears to be stated age is alert, Directable and cooperative. Dressed In a hospital gown with an oversized [place] hooded sweatshirt and red pajama pants. Good hygiene and grooming. Behavior: Patient is seated in the office with no agitated behavior. Eye contact is appropriate. Psychomotor activity appears normal. Speech: Patient's speech is Spontaneous, with normal rate and volume. Monotone. Mood/Affect: Mood is "I'm doing great." Affect is bright. Suicidality/Homicidality: Patient denies any suicidal or homicidal ideation, intention, and/or plan. Perceptions: No auditory or visual hallucinations are endorsed. Though content/process: No delusional thought content is endorsed. Thought process appears to be linear and logical although the patient does not seem to comprehend that she may be going back to prison after this admission. Possible denial. Memory and concentration: Grossly intact for purposes of this session. Judgment and insight: Improving but still poor. Vital Signs Temp 97.6 F 08/13/20 02:00 Pulse 67 08/13/20 02:00 Resp 18 08/13/20 02:00 BP 120/61 08/13/20 02:00 Pulse Ox 99 07/30/20 16:26 Assessment Psychosis, unspecified - suspect schizophreniform versus schizophrenia versus schizoaffective disorder, depressed type. Plan: -Patient continues to meet criteria for inpatient psychiatric admission for symptom stabilization and safety. Patient deferred mental health court. -Medications: Continue invega 6 mg daily. First loading dose of Invega sustenna 234 mg IM was administered on 08/12/2020. -Haldol and vistaril for agitation when necessary. -NRT - nicotine patch -SW on board for discharge planning. Encouraged the patient to participate in milieu.
[2020-08-13 13:04] VITALS: BMI 23.3
[2020-08-13] MEDS: BENZTROPINE MESYLATE 1 MG TAB PO PRN (21:21)
[2020-08-13] MEDS: PALIPERIDONE 3 MG TAB.ER.24 PO SCH (21:21)
--- NOTE | 2020-08-14 10:31 | P.PN ---
Progress Note - Text Progress Note Date: 08/14/20 Interval History: Patient was seen reading a book in her room and was directable and agreeable to speak with casualty underwriter in the office. Patient continues to maintain that she'll be going home upon discharge. She was again informed that she is likely going to [facility] as she is currently in [facility]. Patient seems to comprehend what was said to her today. She does appear to be shocked. She is otherwise not endorsing any suicidal or homicidal ideation, intention, and/or plan. She is not reporting any auditory or visual hallucinations. She denies any paranoia or delusions. She has been adherent with her medications and is not reporting any significant side effects at this time. Time patient denies any suicidal or homical ideations, intent or plan. Patient denies any auditory, visual hallucinations and denies any paranoia or delusions. Patient denies any side effects from the medications and has been compliant with meds. Mental Status Exam: General Appearance: Patient appears to be stated age is alert, directable, and cooperative. Patient is currently dressed in her home clothes. Behavior: Patient is calmly seated without any agitated behavior. Eye contact is appropriate. Psychomotor activity appears normal. Speech: Patient's speech is fluent and nonpressured. Monotone. Nonspontaneous. Mood/Affect: Mood is initially happy which later turned to more of shock. Affect is blunted. Suicidality/Homicidality: Patient denies having any suicidal or homicidal ideation intent or plan. Perceptions: Patient denies any visual hallucinations and denies any auditory hallucinations Though content/process: There is no evidence of any delusional thought content and thought process is linear and goal-directed. Memory and concentration: Grossly intact for the purposes of this session Judgment and insight: Improving mildly Vital Signs Temp 97.2 F L 08/14/20 06:43 Pulse 91 08/14/20 06:43 Resp 16 08/14/20 06:43 BP 106/61 08/14/20 06:43 Pulse Ox 99 07/30/20 16:26 Intake & Output 08/13/20 08/14/20 08/14/20 18:59 06:59 18:59 Weight 65.5 kg Assessment: Schizophrenia versus schizoaffective disorder, depressed type Plan: -Patient continues to meet criteria for inpatient psychiatric admission for symptom stabilization and safety. Patient has signed adult voluntary form and medication consent and was placed in patient's chart. -Medications: Invega Sustenna 234 mg IM was administered on 08/12/2020. Plan is administered second loading dose 156 mg IM on 08/16/2020. Continue oral Invega 6 mg daily -When necessary Ativan and Haldol for agitation/aggression. -NRT - nicotine patch -SW on board for discharge planning. Encouraged the patient to participate in milieu.
--- NOTE | 2020-08-14 14:57 | P.HPMEDMHU ---
<Paul Maldonado - Last Filed: 08/14/20 14:53> History of Present Illness H&P Date: 08/14/20 History of Presenting Illness: Patient is a 35-year-old female with a past medical history of depression and hypothyroidism. She is currently admitted to inpatient mental health unit under psychiatry team for reports of depression with suicidal ideations and reports of having a plan to overdose on her antidepressants. Patient seen and evaluated at the bedside. She reports feeling better since arrival to facility. Patient reports she has a history of hypothyroidism and has not had her levels checked in years. Patient denies taking any daily medications for treatment. Currently patient denies having any headache, lightheadedness, dizziness, changes in vision or hearing, sensitivity to heat or cold, chest pain or palpitations, shortness of breath, abdominal pain, nausea, vomiting, or experiencing any changes in her difficulties with her urinary or bowel function, or experiencing any numbness/tingling/weakness/swelling in extremities. Patient denies any alcohol use and reports occasional marijuana use. Patient denies tobacco use. Review of systems: Pertinent positives and negatives as discussed in HPI, a complete review of systems was performed and all other systems are negative. Physical exam: General: non toxic, no distress, appears at stated age Derm: warm, dry Head: atraumatic, normocephalic, symmetric Eyes: EOMI, no lid lag, anicteric sclera Mouth: no lip lesion, mucus membranes moist Cardiovascular: S1-S2 normal with regular rate and rhythm. No murmurs, gallops, or rubs noted. Posterior tibial pulses palpated bilaterally. Cap refill less than 2 seconds. Lungs: Respirations even, regular, and unlabored on room air. Lungs clear to auscultation bilaterally with no wheezes, rhonchi, or rales noted. No accessory muscle usage. Abdominal: soft, nontender to palpation, no guarding, no appreciable organomegaly Ext: no gross muscle atrophy, no edema, no contractures Neuro: GCS 15. Speech clear. CN II-XI grossly intact, no focal neuro deficits Psych: Alert, oriented, appropriate affect Assessment and Plan of Care: Hypothyroidism -We will obtain a TSH with reflex free T4. Depression with suicidal ideations -Suicide precautions -Management per primary admitting psychiatry team. Thank you for allowing us to participate in the care of this pleasant patient. Do not hesitate to contact us with questions. Someone can be reached from the [facility] hospitalist group all hours of the day at [phone] or via [employer]. Past Medical History Past Medical History: Seizure Disorder Additional Past Medical History / Comment(s): Seizure DO as a child. last seizure 2004 History of Any Multi-Drug Resistant Organisms: None Reported Past Surgical History: No Surgical Hx Reported Past Anesthesia/Blood Transfusion Reactions: No Reported Reaction Past Psychological History: Depression Additional Psychological History / Comment(s): pt unsure of psych Hx. Smoking Status: Never smoker Past Alcohol Use History: Rare Past Drug Use History: Marijuana Medications and Allergies Home Medications Medication Instructions Recorded Confirmed Type FLUoxetine HCL [PROzac] 10 mg PO DAILY 07/30/20 07/30/20 History Mirtazapine [Remeron] 15 mg PO HS 07/30/20 07/30/20 History QUEtiapine [SEROquel] 50 mg PO HS 07/30/20 07/30/20 History busPIRone HCl [Buspar] 5 mg PO BID 07/30/20 07/30/20 History metroNIDAZOLE [Flagyl] 500 mg PO BID 07/30/20 07/30/20 History Allergies Allergy/AdvReac Type Severity Reaction Status Date / Time No Known Allergies Allergy Verified 07/30/20 18:27 Physical Exam Vitals: Vital Signs Temp Pulse Resp BP 08/14/20 06:43 97.2 F L 91 16 106/61 Cranial Nerve Examination - Cranial Nerves Cranial Nerve I- Olfactory: Intact Cranial Nerve II- Optic: Intact Cranial Nerve III- Oculomotor: Intact Cranial Nerve IV- Trochlear: Intact Cranial Nerve V- Trigeminal: Intact Cranial Nerve - Abducens: Intact Cranial Nerve VII- Facial: Intact Cranial Nerve VIII- Auditory: Intact Cranial Nerve IX- Glossopharyngeal: Intact Cranial Nerve X- Vagus: Intact Cranial Nerve XI- Accessory: Intact Cranial Nerve XII- Hypoglossal: Intact Results CBC & Chem 7: 07/31/20 07:58 07/31/20 07:58 Thrombosis Risk Factor Assmnt - Choose All That Apply Any of the Below Risk Factors Present?: No <Denia Carroll - Last Filed: 08/14/20 17:09> History of Present Illness Progress note entered in Error on wrong chart Physical Exam Osteopathic Statement: *. No significant issues noted on an osteopathic structural exam other than those noted in the History and Physical/Consult. Vitals: Vital Signs Temp Pulse Resp BP 08/14/20 06:43 97.2 F L 91 16 106/61 Results CBC & Chem 7: 07/31/20 07:58 07/31/20 07:58
[2020-08-14] MEDS: PALIPERIDONE 3 MG TAB.ER.24 PO SCH (21:26)
--- NOTE | 2020-08-15 11:20 | P.PN ---
Progress Note - Text Progress Note Date: 08/15/20 Interval History: Patient was seen wandering the hallways and was agreeable to speak with typewriter operator automatic in the office. The patient reports that she is excited to go home. She was informed again that she is likely a intermediate hold or will be [facility]. The patient is currently not reporting any suicidal or homicidal ideation, intention, and/or plan. She is not reporting any auditory or visualizations. She is denying any paranoia or other delusions. She denies any issues with appetite or sleep. The patient states that overall she is doing well. She has been adherent with the medications and is not reporting any significant side effects at this time. She continues to have difficulty comprehending that she is not going home straight from this hospital. Mental Status Exam: General Appearance: Patient appears to be stated age is alert, directable, and cooperative. Patient is currently dressed in a red sweater and pajama pants. Behavior: Patient is calmly seated without any agitated behavior. Eye contact is appropriate. Psychomotor activity appears normal. Speech: Patient's speech is fluent and nonpressured. Monotone. Nonspontaneous. Mood/Affect: Mood is "doing really well." Affect is constricted but bright. Suicidality/Homicidality: Patient denies having any suicidal or homicidal ideation intent or plan. Perceptions: Patient denies any visual hallucinations and denies any auditory hallucinations Though content/process: There is no evidence of any delusional thought content and thought process is linear and goal-directed. Memory and concentration: Grossly intact for the purposes of this session Judgment and insight: Poor Vital Signs Temp 98.2 F 08/15/20 06:37 Pulse 83 08/15/20 06:37 Resp 16 08/15/20 06:37 BP 104/59 08/15/20 06:37 Pulse Ox 99 07/30/20 16:26 Assessment: Schizophrenia versus schizoaffective disorder, depressed type Plan: -Patient continues to meet criteria for inpatient psychiatric admission for symptom stabilization and safety. Likely discharge tomorrow. -Medications: Invega Sustenna 234 mg IM was administered on 08/12/2020. Plan is administered second loading dose 156 mg IM on 08/16/2020. Continue oral Invega 6 mg daily -When necessary Ativan and Haldol for agitation/aggression. -NRT - nicotine patch -SW on board for discharge planning. Encouraged the patient to participate in milieu.
[2020-08-15] MEDS: PALIPERIDONE 3 MG TAB.ER.24 PO SCH (20:05)
[2020-08-15] MEDS: BENZTROPINE MESYLATE 1 MG TAB PO PRN (20:11)
[2020-08-16] MEDS ORDERED: PALIPERIDONE IM 156 MG/ML SYG IM ONE (08:00)
[2020-08-16] MEDS ORDERED: PALIPERIDONE IM 156 MG/ML SYG IM STA (09:42)
--- NOTE | 2020-08-16 10:04 | P.PN ---
Progress Note - Text Progress Note Date: 08/16/20 Interval History: Patient was seen wandering the hallways and was agreeable to speak with food writer in the office. The patient is agreeable to receiving Invega Sustenna second loading dose today. She is currently not reporting any suicidal or homicidal ideation, intention, and/or plan. She is not reporting any auditory or visual hallucinations. She is denying any paranoia or other delusions. The patient states that she was excited for discharge today but was informed that she will not b as a logistics of her discharge her still being figured out. The patient seems to continue to believe that she is going home and not going to [facility]. She expresses that she is excited to take out her dogs and play with them outside. She was again informed that she will be going to halfway or another psychiatric facility. The patient replies "Detention will just make me feel worse and that's what happened last time." Mental Status Exam: General Appearance: Patient appears to be stated age is alert, directable, and cooperative. Patient is currently dressed in a red sweater and pajama pants. Behavior: Patient is calmly seated without any agitated behavior. Eye contact is appropriate. Psychomotor activity appears normal. Speech: Patient's speech is fluent, nonpressured, spontaneous, normal rate, and volume. Monotone. Mood/Affect: Mood is "feeling really good. Affect is constricted but bright. Suicidality/Homicidality: Patient denies having any suicidal or homicidal ideation intent or plan. Perceptions: Patient denies any visual hallucinations and denies any auditory hallucinations Though content/process: There is no evidence of any delusional thought content and thought process is linear and goal-directed. Memory and concentration: Grossly intact for the purposes of this session Judgment and insight: Poor Vital Signs Temp 97.3 F L 08/16/20 06:53 Pulse 98 08/16/20 06:53 Resp 16 08/16/20 06:53 BP 99/61 08/16/20 06:53 Pulse Ox 99 07/30/20 16:26 Assessment: Schizoaffective disorder, depressed type Plan: -Patient continues to meet criteria for inpatient psychiatric admission for symptom stabilization and safety. -Medications: Invega Sustenna 234 mg IM was administered on 08/12/2020. Second loading dose of Invega Sustenna 156 mg IM to be administered today. Discontinue oral Invega. Continue Cogentin 1 mg by mouth every 6 hours when necessary for EPS. -When necessary Ativan and Haldol for agitation/aggression. -NRT - nicotine patch -SW on board for discharge planning. Encouraged the patient to participate in milieu.
[2020-08-16] MEDS: BENZTROPINE MESYLATE 1 MG TAB PO PRN (13:51)
[2020-08-16] MEDS: hydrOXYzine pamoate 25 MG CAP PO PRN (23:52)
--- NOTE | 2020-08-17 15:04 | PN ---
PROGRESS NOTE DATE OF SERVICE: 08/17/2020 CHIEF COMPLAINT: The patient had significant decrease in her ability to function and show a poor ability to perform ADLs. This occurred while she was incarcerated. INTERVAL HISTORY: Patient has been doing fair. She had a quiet day yesterday. She comes out in the unit. She tends to wander about. She will interact a little with others. She will often be in day areas and just be quietly observing others. She attended groups yesterday. She had a quiet manner in group, though has been appropriate. She will initiate some. She said she slept well last night. Today she has been up. She continues the same. She attended group today. We discussed discharge planning issues. The patient was adamant about the idea that if she were to go back to correction she would regress as she did before. She said that the stress of correction is just overwhelming to her. Apparently, there are plans in place for a possible placement at [facility]. The patient was uncertain about what the discharge planning was. She notes that she has improved in her mood. She notes that she is not having any auditory hallucinations of late. She tolerates her psychotropic medications including having received her followup injection of Invega Sustenna 156 mg yesterday. MENTAL STATUS EXAM: Patient sat without restlessness. It is noted that she moved somewhat more fluidly than she has been observed to move in the past. She answered questions with brief responses. Her thoughts were clear. Her affect was somewhat blunted. She smiled a little. She had a calm, quiet manner. Her mood was reserved though not clearly down or depressed. She did not appear to be significantly distressed. She indicated no issues with auditory hallucinations. She voiced no thoughts of harm. Cognition was clear. ASSESSMENT: I will continue the current diagnosis and treatment plan. I will continue psychotropic medications the same, namely that she has received Invega Sustenna. We discussed that it would be anticipated she would receive a followup dose in one month from yesterday's followup injection. She is also on Cogentin 1 mg p.r.n., though she has not noted significant side effects relating to the Invega Sustenna. We briefly discussed discharge planning issues. I reviewed her medications in regards to the indication, potential side effects and concerns relating to metabolics and possible movement disorder issues. We will focus on stabilization and discharge planning. MMODL / IJN: [id number] /
[2020-08-17] MEDS: hydrOXYzine pamoate 25 MG CAP PO PRN (21:39)
--- NOTE | 2020-08-18 14:33 | PN ---
PROGRESS NOTE DATE OF SERVICE: 08/18/2020 CHIEF COMPLAINT: The patient has shown had significant decrease in her ability to function and showed a poor ability to perform ADLs. This occurred while she was incarcerated. INTERVAL HISTORY: Patient has been doing fair. She had a quiet day yesterday. She comes out on the unit. Overall she seems to manage reasonably well. She will wander about. She interacts a little with others. Mostly she has a quiet manner. She attended groups yesterday and seemed to do okay in groups. She would verbalize and seemed to make efforts to engage in the group. She said she slept fairly well last night. Today she has been up. Overall she continues to do the same. She is aware that the discharge planning involves her going to an another facility as opposed to being discharged to the community. When I asked her what she understands as the length of incarceration, the patient declined to answer though simply said, "it's for quite a while." She said she did not want to say more than that. When I asked her about the issues yesterday she said she did not want to talk about the circumstances that got her incarcerated. Overall she seems to show improvement in her mood and also in thought process. She is less restricted in her physical movements and facial expressions. She is a little more fluid in that regard. She will smile a fair amount. She generally seems comfortable in the milieu. She tolerates her psychotropic medications. MENTAL STATUS EXAM: The patient sat with a little restlessness. She gave fair eye contact. She answered questions with 1 or 2 word responses. She was not spontaneous or interactive. Her affect was blunted. She smiled quite a bit through the interviewer, though to some extent she seemed to have more of a fixed smile than not. Her mood was reserved though she did not seem depressed nor distressed. It was difficult to assess for thought disorder. She did not indicate any thoughts of harm. She was oriented to circumstances and surroundings. ASSESSMENT: I will continue the current diagnosis and treatment plan. Will continue psychotropic medications the same. At this point, the primary issue is around discharge planning and referral to an appropriate followup inpatient program. We will continue to focus on stabilization and discharge planning. MMMICHAELAL / DAJAN: [id number] /
[2020-08-18] MEDS: BENZTROPINE MESYLATE 1 MG TAB PO PRN (20:54)
[2020-08-19] MEDS: hydrOXYzine pamoate 25 MG CAP PO PRN (03:09)
[2020-08-19 03:12] VITALS: BP 102/62; PULSE 104; RESP 18; TEMP 97.3
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
== END 2020-08-19 09:25 | DRG 885 ==
LOC: EC 10:39 → 3MHU 16:24
PROVIDERS: ADMIT Psychiatry & Neurology Psychiatry; ATTEND Psychiatry & Neurology Psychiatry
DX: F32.3 Major depressive disorder, single episode, severe with psychotic features (principal); F44.9 Dissociative and conversion disorder, unspecified; Z79.899 Other long term (current) drug therapy; Z91.14 Patient's other noncompliance with medication regimen; F12.10 Cannabis abuse, uncomplicated; Z71.51 Drug abuse counseling and surveillance of drug abuser; Z20.822 Contact with and (suspected) exposure to COVID-19
CPT/HCPCS: 80053; 80306; 81003; 81025; 82075; 84443; 85025; 87635